=== PATIENT | female | born 1975 | race Caucasian/White ===

== ENCOUNTER 2016-10-02 19:34 | Emergency (ER) | payer MEDICAID ==
[~2016-10-02] VITALS: Ht 152.4 cm; Wt 62.1 kg
[2016-10-02] MEDS ORDERED: PHENAZOPYRIDINE 200 MG TABLET PO ONE (20:30)
[2016-10-02] MEDS ORDERED: SODIUM CHLORIDE 0.9% 1,000ML IVBOLUS ONE (20:30)
[2016-10-02] MEDS ORDERED: PHENAZOPYRIDINE 200 MG TABLET ONE (20:39)
[2016-10-02 21:05] LABS: ASPARTATE AMINO TRANSFERASE 19 U/L (15-37); BLOOD UREA NITROGEN 5 mg/dL (7-18)
[2016-10-02 21:33] VITALS: BP 107/64
== END 2016-10-02 21:36 | disposition home or self-care (01) ==
LOC: ED 21:30
DX: J98.01 Acute bronchospasm (principal); N30.00 Acute cystitis without hematuria; S63.511A Sprain of carpal joint of right wrist, initial encounter; X58.XXXA Exposure to other specified factors, initial encounter; Y93.89 Activity, other specified; Y99.8 Other external cause status; Y92.89 Other specified places as the place of occurrence of the external cause
CPT/HCPCS: 36415; 71020; 73110; 80053; 81003; 83605; 84145; 84703; 85025; 87040; 96360; 99285; J7030

== ENCOUNTER 2016-11-14 05:18 | Emergency (ER) | payer MEDICAID ==
[~2016-11-14] VITALS: Ht 152.4 cm; Wt 65.3 kg
[2016-11-14] MEDS ORDERED: BUSP (05:42)
[2016-11-14] MEDS ORDERED: DULOX (05:42)
[2016-11-14] MEDS ORDERED: DULO20CA45 PO (05:54)
[2016-11-14] MEDS ORDERED: BUSP5TAB2 PO (05:54)
[2016-11-14] MEDS ORDERED: DIAZ5TAB PO (05:54)
[2016-11-14 07:21] VITALS: BP 118/67
== END 2016-11-14 07:24 | disposition home or self-care (01) ==
LOC: ED 06:18
DX: S00.531A Contusion of lip, initial encounter (principal); S06.0X1A Concussion with loss of consciousness of 30 minutes or less, initial encounter; I10 Essential (primary) hypertension; F43.10 Post-traumatic stress disorder, unspecified; Y04.0XXA Assault by unarmed brawl or fight, initial encounter
CPT/HCPCS: 70450; 70486; 99284

== ENCOUNTER 2016-12-10 12:48 | Emergency (ER) | payer MEDICAID ==
[~2016-12-10] VITALS: Ht 152.4 cm; Wt 65.0 kg
[~2016-12-10 12:48] MED LIST: BUSP; BUSP5TAB2 PO; DIAZ5TAB PO; DULO20CA45 PO; DULOX
[2016-12-10 12:49] VITALS: BP 130/86
[2016-12-10] MEDS ORDERED: OXYcodone/APAP 5/325MG TABLET ONE (13:49)
[2016-12-10] MEDS ORDERED: DIAZEPAM 5 MG TABLET ONE (13:49)
[2016-12-10] MEDS ORDERED: OXYcodone/APAP 5/325MG TABLET PO ONE (14:00)
[2016-12-10] MEDS ORDERED: DIAZEPAM 5 MG TABLET PO ONE (14:00)
== END 2016-12-10 14:03 | disposition home or self-care (01) ==
LOC: ED 13:59
DX: M54.41 Lumbago with sciatica, right side (principal); I10 Essential (primary) hypertension; F17.200 Nicotine dependence, unspecified, uncomplicated; Z88.5 Allergy status to narcotic agent; Z88.6 Allergy status to analgesic agent; Z88.8 Allergy status to other drugs, medicaments and biological substances
CPT/HCPCS: 99284; J7512